=== PATIENT | female | born 1955 | race Two or more races ===

== ENCOUNTER 2017-11-13 16:26 | Outpatient (CLI) | payer OTHER ==
[~2017-11-13 16:26] MED LIST: ORPH100T PO; ULTRACET PO
== END 2017-11-13 17:17 | disposition home or self-care (01) ==
LOC: RAD 16:26
DX: M25.521 Pain in right elbow (principal)

== ENCOUNTER 2017-12-26 12:31 | Outpatient (CLI) | payer OTHER | END 2017-12-26 12:47 | disposition home or self-care (01) | LOC: LAB 12:31 | DX: E55.9 Vitamin D deficiency, unspecified (principal); E21.3 Hyperparathyroidism, unspecified; E88.89 Other specified metabolic disorders; E83.42 Hypomagnesemia; E56.1 Deficiency of vitamin K; M85.9 Disorder of bone density and structure, unspecified; M81.8 Other osteoporosis without current pathological fracture ==

== ENCOUNTER 2018-08-25 14:02 | Outpatient (CLI) | payer OTHER | END 2018-08-25 14:04 | disposition home or self-care (01) | LOC: RAD 14:02 | DX: M25.572 Pain in left ankle and joints of left foot (principal) ==

== ENCOUNTER → 2018-11-14 | Outpatient (CLI) | payer OTHER | END | disposition home or self-care (01) | LOC: RAD 501 11:29 | DX: M25.552 Pain in left hip (principal); M25.512 Pain in left shoulder ==

== ENCOUNTER 2018-11-18 12:57 | Outpatient (CLI) | payer OTHER | END 2018-11-18 15:00 | disposition home or self-care (01) | LOC: LAB 12:57 | DX: E55.9 Vitamin D deficiency, unspecified (principal); M85.9 Disorder of bone density and structure, unspecified ==

== ENCOUNTER 2019-01-20 16:19 | Outpatient (CLI) | payer OTHER | END 2019-01-20 16:39 | disposition home or self-care (01) | LOC: RAD 16:19 | DX: S93.491A Sprain of other ligament of right ankle, initial encounter (principal) ==